=== PATIENT | female | born 1990 | race Caucasian/White ===

== ENCOUNTER 2023-01-16 13:03 | Emergency (ER) | payer OTHER ==
[~2023-01-16] VITALS: Ht 180.3 cm; Wt 113.4 kg
[2023-01-16 15:42] LABS: Influenza A, PCR NEGATIVE (NEGATIVE); Influenza B, PCR NEGATIVE (NEGATIVE); Resp Syncytial Virus, PCR NEGATIVE (NEGATIVE); SARS-Cov-2 (COVID-19) PCR, MMC NEGATIVE (NEGATIVE)
[2023-01-16] MEDS ORDERED: IBUP800 PO (15:42)
[2023-01-16] MEDS ORDERED: BENMENLOZ PO (15:42)
[2023-01-16] MEDS ORDERED: ONDA4ODT MM (15:42)
== END 2023-01-16 16:14 | disposition home or self-care (01) ==
LOC: ER 13:03
PROVIDERS: Student in an Organized Health Care Education/Training Program
DX: J02.9 Acute pharyngitis, unspecified (principal); H92.02 Otalgia, left ear; R51.9 Headache, unspecified; R11.0 Nausea; F17.200 Nicotine dependence, unspecified, uncomplicated; Z88.8 Allergy status to other drugs, medicaments and biological substances; Z20.822 Contact with and (suspected) exposure to COVID-19
CPT/HCPCS: 0241U; 87077; 87081; 87185; 87430; 96372; 99283-25; A9270; J1885

== ENCOUNTER 2023-07-22 14:02 | Emergency (ER) | payer OTHER ==
[~2023-07-22] VITALS: Ht 177.8 cm; Wt 90.7 kg
[~2023-07-22 14:02] MED LIST: BENMENLOZ PO; IBUP800 PO; ONDA4ODT MM
[2023-07-22 14:20] VITALS: BP 161/127
[2023-07-22 15:04] LABS: Source, Urine Clean Catch
[2023-07-22 15:11] LABS: Appearance, Urine Clear (Clear); Bilirubin, Urine Neg (Neg); Blood, Urine Neg (Neg); Color, Urine Yellow (P-Yellow); Glucose Qualitative, Urine Neg (Neg); Ketones, Urine Neg (Neg); Leukocyte Esterase, Urine Neg (Neg); Nitrite, Urine Neg (Neg); Protein, Urine Neg (Neg); Urobilinogen, Urine NORM (Normal)
[2023-07-22] MEDS ORDERED: Imitrex25 MG PO (15:33)
== END 2023-07-22 15:49 | disposition home or self-care (01) ==
LOC: ER 14:02
PROVIDERS: Physician Assistant
DX: G43.909 Migraine, unspecified, not intractable, without status migrainosus (principal); S09.90XA Unspecified injury of head, initial encounter; R10.9 Unspecified abdominal pain; Z88.6 Allergy status to analgesic agent; Z88.8 Allergy status to other drugs, medicaments and biological substances; X58.XXXA Exposure to other specified factors, initial encounter
CPT/HCPCS: 70486; 76770; 81003; 99284-25; A9270

== ENCOUNTER 2023-11-01 10:21 | Emergency (ER) | payer OTHER ==
[~2023-11-01] VITALS: Ht 177.8 cm; Wt 109.8 kg
[~2023-11-01 10:21] MED LIST changes: +Imitrex25 MG PO
[2023-11-01 10:51] VITALS: BP 138/78
[2023-11-01 11:20] LABS: Source, Urine Clean Catch
[2023-11-01 11:42] LABS: BASOPHILS ABSOLUTE AUTO 0.04 K/mm3 (0.00-0.23); BASOPHILS PERCENT AUTO 1 % (0-2); EOSINOPHILS ABSOLUTE AUTO 0.07 K/mm3 (0.00-0.68); EOSINOPHILS PERCENT AUTO 1 % (0-6); Hematocrit 37.7 % (33.0-51.0); Hemoglobin 12.4 g/dL (11.5-16.0); IMMATURE GRAN ABSOLUTE AUTO 0.02 K/mm3 (0.00-0.10); IMMATURE GRAN PERCENT AUTO 0 % (0-1); LYMPHOCYTES ABSOLUTE AUTO 1.88 K/mm3 (0.84-5.20); LYMPHOCYTES PERCENT AUTO 21 % (21-46); MONOCYTES ABSOLUTE AUTO 0.79 K/mm3 (0.16-1.47); MONOCYTES PERCENT AUTO 9 % (4-13); Mean Corpuscular HGB 29.8 pg (26.0-34.0); Mean Corpuscular HGB Conc 32.9 g/dL (31.5-36.5); Mean Corpuscular Volume 91 fL (80-100); Mean Platelet Volume 11.3 fL (9.1-12.4); NEUTROPHILS PERCENT AUTO 68 % (41-73); Platelet Count 209 K/mm3 (150-400); RDW Coefficient Variation 12.2 % (11.7-14.2); RDW Standard Deviation 40.6 fL (35.1-46.3); Red Blood Cell Count 4.16 M/mm3 (3.80-5.20)
[2023-11-01 11:48] LABS: Appearance, Urine Hazy (Clear); Bilirubin, Urine Neg (Neg); Blood, Urine 4+ (Neg); Color, Urine Yellow (P-Yellow); Glucose Qualitative, Urine Neg (Neg); Ketones, Urine Neg (Neg); Leukocyte Esterase, Urine 1+ (Neg); Nitrite, Urine Neg (Neg); Protein, Urine 1+ (Neg); Urobilinogen, Urine NORM (Normal)
[2023-11-01 12:03] LABS: Albumin/Globulin Ratio 1.2 (0.8-1.8); Bilirubin, Total 0.6 mg/dL (0.1-1.0); Bun/Creatinine Ratio 19.3 (12.0-20.0); Calcium, Blood 8.9 mg/dL (8.5-10.1); Creatinine, Blood 0.78 mg/dL (0.40-1.00); Globulin, Blood 3.3 g/dL (2.2-4.0); Potassium, Blood 3.7 mmol/L (3.5-5.5); Total Protein, Blood 7.3 g/dL (6.4-8.2)
[2023-11-01 12:10] LABS: Bacteria Few /hpf; Red Blood Cells, Urine 25-50 /hpf (0-2); Squamous Epithelial Cells Few /hpf (Few)
[2023-11-01] MEDS ORDERED: TraMADol HCl 50 MG Tab PO ONE (12:25)
[2023-11-01] MEDS ORDERED: Ondansetron HCl 2 MG / ML 2ML Vial IV ONE (12:25)
[2023-11-01] MEDS ORDERED: TRAM50 PO (12:26)
[2023-11-01] MEDS ORDERED: CEPH500 PO (12:26)
== END 2023-11-01 12:41 | disposition home or self-care (01) ==
LOC: ER 10:21
PROVIDERS: Student in an Organized Health Care Education/Training Program
DX: N39.0 Urinary tract infection, site not specified (principal); N20.0 Calculus of kidney; Z87.442 Personal history of urinary calculi; Z96.0 Presence of urogenital implants
CPT/HCPCS: 74177; 80053; 81001; 81025; 83690; 85025; 87086; 96374-59; 99284-25; A9270; J2405; Q9967

== ENCOUNTER 2023-11-07 13:47 | Emergency (ER) | payer OTHER ==
[~2023-11-07] VITALS: Ht 177.8 cm; Wt 108.9 kg
[~2023-11-07 13:47] MED LIST changes: +CEPH500 PO; +TRAM50 PO
[2023-11-07 15:06] LABS: BASOPHILS ABSOLUTE AUTO 0.03 K/mm3 (0.00-0.23); BASOPHILS PERCENT AUTO 0 % (0-2); EOSINOPHILS ABSOLUTE AUTO 0.04 K/mm3 (0.00-0.68); EOSINOPHILS PERCENT AUTO 0 % (0-6); Hematocrit 39.1 % (33.0-51.0); Hemoglobin 12.6 g/dL (11.5-16.0); IMMATURE GRAN ABSOLUTE AUTO 0.04 K/mm3 (0.00-0.10); IMMATURE GRAN PERCENT AUTO 0 % (0-1); LYMPHOCYTES ABSOLUTE AUTO 1.22 K/mm3 (0.84-5.20); LYMPHOCYTES PERCENT AUTO 11 % (21-46); MONOCYTES ABSOLUTE AUTO 0.69 K/mm3 (0.16-1.47); MONOCYTES PERCENT AUTO 6 % (4-13); Mean Corpuscular HGB Conc 32.2 g/dL (31.5-36.5); Mean Corpuscular Volume 90 fL (80-100); Mean Platelet Volume 10.7 fL (9.1-12.4); NEUTROPHILS ABSOLUTE AUTO 9.18 K/mm3 (1.96-9.15); NEUTROPHILS PERCENT AUTO 82 % (41-73); Platelet Count 231 K/mm3 (150-400); RDW Coefficient Variation 12.3 % (11.7-14.2); RDW Standard Deviation 41.1 fL (35.1-46.3); Red Blood Cell Count 4.35 M/mm3 (3.80-5.20)
[2023-11-07 15:24] LABS: Albumin, Blood 4.1 g/dL (3.4-5.0); Albumin/Globulin Ratio 1.1 (0.8-1.8); Bilirubin, Total 0.6 mg/dL (0.1-1.0); Bun/Creatinine Ratio 13.2 (12.0-20.0); Calcium, Blood 9.1 mg/dL (8.5-10.1); Creatinine, Blood 0.76 mg/dL (0.40-1.00); Globulin, Blood 3.6 g/dL (2.2-4.0); Potassium, Blood 3.7 mmol/L (3.5-5.5); Total Protein, Blood 7.7 g/dL (6.4-8.2)
[2023-11-07] MEDS ORDERED: Ondansetron HCl 2 MG / ML 2ML Vial IV ONE (15:50)
[2023-11-07] MEDS ORDERED: FentaNYL Citrate 50 MCG/ML 2 ML Injection IV ONE (16:10)
[2023-11-07] MEDS ORDERED: Lactated Ringer's 1,000 ML IV ONE (16:15)
[2023-11-07 16:16] LABS: Source, Urine Clean Catch
[2023-11-07 16:22] LABS: Appearance, Urine Hazy (Clear); Bilirubin, Urine Neg (Neg); Blood, Urine 5+ (Neg); Color, Urine Amber (P-Yellow); Glucose Qualitative, Urine Neg (Neg); Ketones, Urine Neg (Neg); Leukocyte Esterase, Urine Neg (Neg); Nitrite, Urine Neg (Neg); Protein, Urine 2+ (Neg); Specific Gravity, Urine 1.015 (1.003-1.022); Urobilinogen, Urine NORM (Normal)
[2023-11-07 16:31] LABS: Bacteria Few /hpf; Red Blood Cells, Urine 25-50 /hpf (0-2); Squamous Epithelial Cells Few /hpf (Few); White Blood Cells, Urine 0-2 /hpf (0-5)
[2023-11-07 16:52] LABS: Influenza A, PCR NEGATIVE (NEGATIVE); Influenza B, PCR NEGATIVE (NEGATIVE); Resp Syncytial Virus, PCR NEGATIVE (NEGATIVE); SARS-Cov-2 (COVID-19) PCR, MMC NEGATIVE (NEGATIVE)
[2023-11-07 17:15] VITALS: BP 103/62
[2023-11-07] MEDS ORDERED: OXAYDO5 M1 PO (17:54)
== END 2023-11-07 18:03 | disposition home or self-care (01) ==
LOC: ER 13:47
PROVIDERS: Physician Assistant; Student in an Organized Health Care Education/Training Program
DX: N13.2 Hydronephrosis with renal and ureteral calculous obstruction (principal); Z79.899 Other long term (current) drug therapy; Z88.8 Allergy status to other drugs, medicaments and biological substances; Z88.6 Allergy status to analgesic agent; Z20.822 Contact with and (suspected) exposure to COVID-19
CPT/HCPCS: 0241U; 71046; 74177; 80053; 81001; 81025; 83690; 85025; 93005; 93010; 96361; 96374-59; 96375; 99284-25; J2405; J3010; J7120; Q9967

== ENCOUNTER → 2024-01-30 | Outpatient (CLI) | payer OTHER ==
[~2024-01-30] MED LIST changes: +OXAYDO5 M1 PO
== END | disposition home or self-care (01) ==
LOC: LAB SHORT 09:10 → LAB 09:10
DX: R30.0 Dysuria (principal); R19.5 Other fecal abnormalities; R11.0 Nausea
CPT/HCPCS: 87086

== ENCOUNTER 2024-03-20 04:43 | Emergency (ER) | payer OTHER ==
[~2024-03-20] VITALS: Ht 177.8 cm; Wt 106.6 kg
[~2024-03-20 04:43] MED LIST changes: +ABILIFY MYCITE2 M2 PO; +ABILIFY5 MG PO; +ALLO100 PO; +LAMOTRIGINE100 M1 PO; +PRAZ1 PO; +Robaxin750 MG PO
[2024-03-20 05:53] LABS: BASOPHILS ABSOLUTE AUTO 0.04 K/mm3 (0.00-0.23); BASOPHILS PERCENT AUTO 1 % (0-2); EOSINOPHILS ABSOLUTE AUTO 0.13 K/mm3 (0.00-0.68); EOSINOPHILS PERCENT AUTO 2 % (0-6); Hematocrit 37.1 % (33.0-51.0); Hemoglobin 12.1 g/dL (11.5-16.0); IMMATURE GRAN ABSOLUTE AUTO 0.03 K/mm3 (0.00-0.10); IMMATURE GRAN PERCENT AUTO 0 % (0-1); LYMPHOCYTES ABSOLUTE AUTO 1.83 K/mm3 (0.84-5.20); LYMPHOCYTES PERCENT AUTO 26 % (21-46); MONOCYTES ABSOLUTE AUTO 0.78 K/mm3 (0.16-1.47); MONOCYTES PERCENT AUTO 11 % (4-13); Mean Corpuscular HGB 29.8 pg (26.0-34.0); Mean Corpuscular HGB Conc 32.6 g/dL (31.5-36.5); Mean Corpuscular Volume 91 fL (80-100); Mean Platelet Volume 10.8 fL (9.1-12.4); NEUTROPHILS ABSOLUTE AUTO 4.14 K/mm3 (1.96-9.15); NEUTROPHILS PERCENT AUTO 60 % (41-73); Platelet Count 177 K/mm3 (150-400); RDW Coefficient Variation 13.1 % (11.7-14.2); RDW Standard Deviation 43.7 fL (35.1-46.3); Red Blood Cell Count 4.06 M/mm3 (3.80-5.20); White Blood Cell Count 6.95 K/mm3 (4.00-11.30)
[2024-03-20] MEDS ORDERED: Methocarbamol 500 MG Tab PO ONE (06:10)
[2024-03-20] MEDS ORDERED: Ketorolac Tromethamine 30mg Vial IV ONE (06:10)
[2024-03-20] MEDS ORDERED: Acetaminophen 500 MG Tab PO ONE (06:10)
[2024-03-20] MEDS ORDERED: Methyl Salicylate/Menth/Camph 57 GM TUBE TOP ONE (06:10)
[2024-03-20 06:18] LABS: Albumin, Blood 3.5 g/dL (3.4-5.0); Albumin/Globulin Ratio 1.2 (0.8-1.8); Bilirubin, Total 0.4 mg/dL (0.1-1.0); Bun/Creatinine Ratio 14.9 (12.0-20.0); Calcium, Blood 8.9 mg/dL (8.5-10.1); Creatinine, Blood 0.61 mg/dL (0.40-1.00); Potassium, Blood 3.9 mmol/L (3.5-5.5); Total Protein, Blood 6.5 g/dL (6.4-8.2)
[2024-03-20 08:11] LABS: Source, Urine Clean Catch
[2024-03-20 08:14] LABS: Appearance, Urine Clear (Clear); Bilirubin, Urine Neg (Neg); Blood, Urine Neg (Neg); Color, Urine Yellow (P-Yellow); Glucose Qualitative, Urine Neg (Neg); Ketones, Urine Neg (Neg); Leukocyte Esterase, Urine 1+ (Neg); Nitrite, Urine Neg (Neg); Protein, Urine 1+ (Neg); Urobilinogen, Urine NORM (Normal)
[2024-03-20 08:21] LABS: Bacteria Rare /hpf; Red Blood Cells, Urine Not Seen /hpf (0-2); Squamous Epithelial Cells Rare /hpf (Few)
[2024-03-20 10:01] VITALS: BP 116/69
== END 2024-03-20 10:02 | disposition home or self-care (01) ==
LOC: ER 04:43
PROVIDERS: Emergency Medicine
DX: S39.012A Strain of muscle, fascia and tendon of lower back, initial encounter (principal); N13.2 Hydronephrosis with renal and ureteral calculous obstruction; X58.XXXA Exposure to other specified factors, initial encounter; Z88.8 Allergy status to other drugs, medicaments and biological substances; Z88.6 Allergy status to analgesic agent; Z79.899 Other long term (current) drug therapy; F17.200 Nicotine dependence, unspecified, uncomplicated
CPT/HCPCS: 74177; 76770; 80053; 81001; 83690; 83735; 84145; 84703; 85025; 87086; 96374-59; 99284-25; A9270; J1885; Q9967

== ENCOUNTER → 2024-03-22 | Outpatient (CLI) | payer OTHER ==
[2024-04-05 12:50] LABS: HPV HIGH RISK BY TMA Not Detected; HPV SOURCE Cervical
== END ==
LOC: LAB 11:02 → LAB SHORT 11:02
PROVIDERS: Physician Assistant
DX: Z01.419 Encounter for gynecological examination (general) (routine) without abnormal findings (principal)
CPT/HCPCS: 87624; G0123

== ENCOUNTER → 2024-04-14 | Outpatient (CLI) | payer OTHER ==
[2024-04-20 10:37] LABS: CALCIUM, URINE - PER 24H 92 mg/d (100-250); CALCIUM, URINE - PER VOLUME 8.4 mg/dL; CHLORIDE, URINE - PER 24H 70 mmol/d (140-250); CHLORIDE, URINE - PER VOLUME 64 mmol/L; CITRIC ACID, URINE - PER 24H 320 mg/d (320-1240); CITRIC ACID,URINE - PER VOLUME 291 mg/L; CREATININE, URINE - PER 24H 1738 mg/d (700-1600); CREATININE, URINE - PER VOLUME 158 mg/dL; HOURS COLLECTED 24 hr; MAGNESIUM, URINE - PER VOLUME 7.4 mg/dL; MAGNESIUM, URINE PER 24H 81 mg/d (12-199); OXALATE, URINE - PER 24H 31 mg/d (13-40); OXALATE, URINE - PER VOLUME 28 mg/L; PH, URINE 6.05 (5.00-7.50); PHOSPHORUS, URINE - PER 24H 946 mg/d (400-1300); PHOSPHORUS, URINE - PER VOLUME 86 mg/dL; POTASSIUM, URINE - PER 24H 43 mmol/d (25-125); POTASSIUM, URINE - PER VOLUME 39 mmol/L; SODIUM, URINE - PER 24H 69 mmol/d (51-286); SODIUM, URINE - PER VOLUME 63 mmol/L; SULFATE, URINE - PER 24H 15 mmol/d (6-30); SULFATE, URINE - PER VOLUME 14 mmol/L; TOTAL VOLUME 1100 mL; URIC ACID, URINE - PER 24H 341 mg/d (250-750); URINE SUPERSATURATION INTERP Abnormal; URINE SUPERSATURATION, CAHPO4 1.88; URINE SUPERSATURATION, CAOX 5.65; URINE SUPERSATURATION, UA CALC 0.42
== END ==
LOC: LAB SHORT 13:30 → LAB 13:30 → LAB FUT 04-12 13:00
PROVIDERS: Urology
DX: N13.5 Crossing vessel and stricture of ureter without hydronephrosis (principal); N20.0 Calculus of kidney
CPT/HCPCS: 81003; 82131; 82140; 82340; 82436; 82507; 82570; 83735; 83935; 83945; 84105; 84133; 84300; 84392; 84560

== ENCOUNTER 2024-06-20 12:10 | Emergency (ER) | payer OTHER ==
[~2024-06-20] VITALS: Ht 177.8 cm; Wt 104.3 kg
[2024-06-20 12:49] LABS: BASOPHILS ABSOLUTE AUTO 0.05 K/mm3 (0.00-0.23); BASOPHILS PERCENT AUTO 1 % (0-2); EOSINOPHILS ABSOLUTE AUTO 0.07 K/mm3 (0.00-0.68); EOSINOPHILS PERCENT AUTO 1 % (0-6); Hematocrit 42.9 % (33.0-51.0); Hemoglobin 14.1 g/dL (11.5-16.0); IMMATURE GRAN ABSOLUTE AUTO 0.04 K/mm3 (0.00-0.10); IMMATURE GRAN PERCENT AUTO 0 % (0-1); LYMPHOCYTES ABSOLUTE AUTO 1.94 K/mm3 (0.84-5.20); LYMPHOCYTES PERCENT AUTO 19 % (21-46); MONOCYTES ABSOLUTE AUTO 0.65 K/mm3 (0.16-1.47); MONOCYTES PERCENT AUTO 6 % (4-13); Mean Corpuscular HGB 29.9 pg (26.0-34.0); Mean Corpuscular HGB Conc 32.9 g/dL (31.5-36.5); Mean Corpuscular Volume 91 fL (80-100); Mean Platelet Volume 10.9 fL (9.1-12.4); NEUTROPHILS ABSOLUTE AUTO 7.61 K/mm3 (1.96-9.15); NEUTROPHILS PERCENT AUTO 73 % (41-73); Platelet Count 196 K/mm3 (150-400); RDW Coefficient Variation 11.6 % (11.7-14.2); RDW Standard Deviation 38.9 fL (35.1-46.3); Red Blood Cell Count 4.71 M/mm3 (3.80-5.20); White Blood Cell Count 10.36 K/mm3 (4.00-11.30)
[2024-06-20 13:11] LABS: Ethanol (Alcohol), Blood, Med <3 mg/dL; Salicylate 2.3 mg/dL (2.8-20.0)
[2024-06-20 13:18] LABS: Acetaminophen, Random <2.0 ug/mL (10.0-30.0); Alanine Aminotransfer (ALT/SGP 16 U/L (12-78); Albumin, Blood 4.4 g/dL (3.4-5.0); Albumin/Globulin Ratio 1.2 (0.8-1.8); Alk Phos 55 U/L (50-136); Anion Gap 10 mmol/L (3-11); Aspartate Aminotrans (AST/SGOT 15 U/L (12-37); Bilirubin, Total 0.4 mg/dL (0.1-1.0); Blood Urea Nitrogen 13 mg/dL (8-24); Bun/Creatinine Ratio 12.9 (12.0-20.0); CO2, Blood 24 mmol/L (21-32); Calcium, Blood 9.2 mg/dL (8.5-10.1); Chloride, Blood 111 mmol/L (98-108); Creatinine, Blood 1.01 mg/dL (0.40-1.00); Globulin, Blood 3.7 g/dL (2.2-4.0); Glomerular Filtration Rate 75 (60-); Glucose, Blood 95 mg/dL (70-99); Potassium, Blood 4.3 mmol/L (3.5-5.5); Sodium, Blood 141 mmol/L (136-145); Total Protein, Blood 8.1 g/dL (6.4-8.2)
[2024-06-20 13:21] LABS: Source, Urine Clean Catch
[2024-06-20 13:24] LABS: Appearance, Urine Hazy (Clear); Bilirubin, Urine Neg (Neg); Blood, Urine Neg (Neg); Color, Urine Yellow (P-Yellow); Glucose Qualitative, Urine Neg (Neg); Ketones, Urine Neg (Neg); Leukocyte Esterase, Urine 1+ (Neg); Nitrite, Urine Neg (Neg); Protein, Urine 1+ (Neg); Specific Gravity, Urine 1.015 (1.003-1.022); Urobilinogen, Urine 2+ (Normal); pH, Urine 6.5 (5.0-8.0)
[2024-06-20 13:44] LABS: Amorphous Light (0-Heavy); Red Blood Cells, Urine 0-2 /hpf (0-2); Squamous Epithelial Cells Mod /hpf (Few)
[2024-06-20 13:45] LABS: Bacteria Few /hpf
[2024-06-20 13:58] LABS: U Amphetamine Screen Not Detected; U Barbituate Screen Not Detected; U Benzodiazapine Screen Not Detected; U Buprenorphine Screen Not Detected; U Cannabinoids Screen DETECTED; U Cocaine Screen DETECTED; U Methadone Screen Not Detected; U Methamphetamine Screen Not Detected; U Opiates Screen DETECTED; U Oxycodone Screen Not Detected; U Phencyclidine Screen Not Detected
[2024-06-20] MEDS ORDERED: Acetaminophen 325 MG TABLET PO PRN (19:05)
[2024-06-20 19:09] VITALS: BP 119/73
== END 2024-06-20 20:57 ==
LOC: ER 12:10
PROVIDERS: Emergency Medicine
DX: R45.851 Suicidal ideations (principal); F17.290 Nicotine dependence, other tobacco product, uncomplicated; Z88.8 Allergy status to other drugs, medicaments and biological substances; Z88.6 Allergy status to analgesic agent
CPT/HCPCS: 80053; 80320; 81001; 81025; 85025; 87086; 93005; 93010; 99285-25; A9270; G0480

== ENCOUNTER 2024-06-20 14:18 | Inpatient (IN) | payer OTHER ==
[~2024-06-20] VITALS: Ht 177.8 cm; Wt 104.3 kg
[2024-06-20] MEDS ORDERED: FLU VACC TS2024-25(6MOS UP)/PF 45 MCG/0.5 ML SYRINGE IM SCH (19:50)
[2024-06-20] MEDS ORDERED: QUEtiapine Fumarate 25 MG Tab PO PRN (19:55)
[2024-06-20] MEDS ORDERED: Aluminum Hydroxide 320MG/5ML 473 ML PO PRN (19:55)
[2024-06-20] MEDS ORDERED: TraZODone HCl 50 MG Tab PO PRN (19:55)
[2024-06-20] MEDS ORDERED: Melatonin 3 MG Tab PO PRN (19:55)
[2024-06-20] MEDS ORDERED: OLANZapine 10 MG Vial IM PRN (19:55)
[2024-06-20] MEDS ORDERED: OLANZapine ODT 10 MG Tab MM PRN (19:55)
[2024-06-20] MEDS ORDERED: Acetaminophen 325 MG TABLET PO PRN (19:55)
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
[2024-06-21 08:51] VITALS: BP 102/68
[2024-06-21] MEDS ORDERED: Multivitamins 1 Tab PO SCH (09:00)
[2024-06-21] MEDS ORDERED: SUMAtriptan Succinate 25 MG Tab PO ONE (12:05)
[2024-06-21] MEDS ORDERED: SUMAtriptan Succinate 25 MG Tab PO PRN (12:10)
[2024-06-21] MEDS ORDERED: ARIPiprazole 10 MG Tab PO SCH (12:14)
[2024-06-21] MEDS ORDERED: LamoTRIgine 25 MG Tab PO SCH (12:14)
[2024-06-21] MEDS ORDERED: Sertraline HCl 50 MG Tab PO SCH (12:15)
--- NOTE | 2024-06-21 18:44 | NUR ---
SHIFT SUMMARY PT AA&OX4. PLEASANT AND COOPERATIVE WITH CARE. SPEECH AND EYE CONTACT APPROPRIATE. COMPLIANT WITH MEDICATION. PT ATTEMPTED GROUP BUT HAD A MIGRAINE HEADACHE. PT TAKES 100MG SUMATRITAN AT HOME. NOTIFIED AN ORDER OBTAINED. AFTER MEDICATION PT SLEPT MOST OF THE DAY. PT REPORTS MIGRAINE IMPROVED ON WAKING. SHE HAD WHAT APPEARED TO BE A PLEASANT VISIT WITH MOTHER. SHE CURRENTLY DENIES SI, AVH. SHE HAS NO CURRENT NEEDS OR CONCERNS. WILL CONTINUE POC
[2024-06-21] MEDS ORDERED: Prazosin HCl 1 MG Cap PO SCH (21:00)
--- NOTE | 2024-06-21 21:15 | NUR ---
NATHANIEL "MILE" IN BED WITH COVER OVER EYES DUE TO C/O MIGRAINE. PRN IMITREX GIVEN ORDERED. PT IS ALERT AND ORIENTED, CALM, COOPERATIVE, COMPLIANT WITH ALL CARE. DENIED SI/HI/AVTH. PT STATED "I HAD A GOOD DAY, BUT I DID CRY A LOT." DENIED ALL OTHER CONCERNS. PT CURRENTLY STILL IN BED RESTING, CHEST RISING IN NAD. SAFETY MEASURES MAINTAINED VIA Q15 MIN CHECKS.
[2024-06-21 22:08] VITALS: BP 121/73
--- NOTE | 2024-06-22 04:34 | NUR ---
SEE PREVIOUS NOTE. PT APPEARED TO SLEEP ALL SHIFT WITHOUT DIFFICULTY. PT IS STILL CURRENTLY IN BED, CHEST RISING IN NAD. SAFETY MEASURES MAINTAINED.
[2024-06-22 08:25] VITALS: BP 133/92
[2024-06-22] MEDS ORDERED: Omeprazole 20 MG CapCR PO ONE (11:05)
--- NOTE | 2024-06-22 17:20 | NUR ---
SHIFT SUMMARY PT AA&OX4. PLEASANT AND COOPERATIVE WITH CARE. SPEECH AND EYE CONTACT APPROPRIATE. REPORTS MOOD "DOING BETTER" AFFECT IS CONGRUENT. PT HAS BEEN UP TO SHOWER, GROUPS, AND MEALS. SHE REPORTS TO THIS RN THAT SHE IS PLEASED TO BE PARTICIPATING. SHE DENIES CURRENT SI, AVH. SHE IS COPMPLIANT WITH MEDICATION. SHE DID REPORT THE BEGINNING OF A MIGRAINE THIS EVENING, SUMATRITIN GIVEN WITH PT LAYING DOWN AFTER. SHE DENIES ANY OTHER CONCERNS AT THIS TIME. WILL CONTINUE POC.
[2024-06-22 22:07] VITALS: BP 103/63
--- NOTE | 2024-06-23 02:25 | NUR ---
ASSUMED CARE FROM PRIOR SHIFT. PATIENT IS A/OX4. ABLE TO VOICE NEEDS AND HAVE MEANINGFUL CONVERSATION. SHE IS SOCIALIZING WITH OTHER PATIENTS AND STAFF APPROPRIATELY. SHE DENIES ANY SI,VH OR AH. SHE IS COMPLIANT WITH MEDICATIONS, ASSESSMENT AND CARE. SHE GOES TO BED WITHOUT ENCOURAGMENT. NO NOTED BEHAVIORS OR ISSUES. SHE IS CURRENTLY SLEEPING THROUGH THE NIGHT.
--- NOTE | 2024-06-23 04:08 | NUR ---
PATIENT CONTINUES TO SLEEP WITHOUT ANY BEHAVIORS OR ISSUES. WE WILL CONTINUE TO MONITOR.
--- NOTE | 2024-06-23 06:24 | NUR ---
PATIENT SLEPT THROUGH THE NIGHT. NO NOTED ISSUES OR BEHAVIORS.
[2024-06-23 08:34] VITALS: BP 123/83
[2024-06-23] MEDS ORDERED: Omeprazole 20 MG CapCR PO SCH (09:00)
[2024-06-23] MEDS ORDERED: ARIPiprazole 300 MG SUSER.SYR IM ONE ×2 (09:50→12:05)
[2024-06-23] MEDS ORDERED: FLU VACC TS2024-25(6MOS UP)/PF 45 MCG/0.5 ML SYRINGE IM ONE (12:15)
--- NOTE | 2024-06-23 15:13 | NUR ---
Pt Discharge Appointment Information Pt note has been sent back to [facility] on [facility] Operator [facility]. He will return a call for discharge appointment.
[2024-06-23 22:24] VITALS: BP 131/75
--- NOTE | 2024-06-24 01:14 | NUR ---
ASSUMED CARE FROM PRIOR SHIFT. PATIENT IS A/OX4, ABLE TO VOICE NEEDS AND HAVE MEANINGFUL CONVERSATION. SHE IS VISITING WITH STAFF AND OTHER PATIENTS APPROPRIATLY. SHE HAS A PM SNACK WITH OTHER PATIENTS. SHE DOES C/O OF MIGRAINE HEAD ACHE PAIN AND WAS GIVEN HER PRN MEDICATIONS FOR HEAD ACHE AND SLEEP. SHE DOES GO TO BED WITHOUT ENCOURAGEMENT. SHE DENIES ANY SI, VH OR AH. NO NOTED BEHAVIORS OR ISSUES. WE WILL CONTINUE TO MONITOR.
--- NOTE | 2024-06-24 04:22 | NUR ---
PATIENT CONTINUES TO SLEEP THROUGH THE NIGHT. NO NOTED BEHAVIORS OR ISSUES.
[2024-06-24] MEDS ORDERED: Omeprazole 20 MG CapCR PO SCH (06:00)
[2024-06-24] MEDS ORDERED: ARIPiprazole 10 MG Tab PO SCH (09:00)
[2024-06-24 09:15] VITALS: BP 135/75
[2024-06-24] MEDS ORDERED: LAMO25 PO (11:18)
[2024-06-24] MEDS ORDERED: OMEP20ER PO (11:19)
[2024-06-24] MEDS ORDERED: MELA3 PO (11:19)
[2024-06-24] MEDS ORDERED: SERT25 PO (11:20)
[2024-06-24] MEDS ORDERED: PRAZ1 PO (11:20)
[2024-06-24] MEDS ORDERED: IMITREX25 MG PO (11:24)
[2024-06-24] MEDS ORDERED: ABILIFY IM (11:30)
--- NOTE | 2024-06-24 13:10 | NUR ---
DC SUMMARY PT AxOx4. PLEASANT AND COOPERATIVE WITH CARE. PT IS DISCHARGING TODAY HOME WITH HER DAD. PT DENIES SI/HI AND AVH. PT HAS BEEN FOLLOWING TX PLAN INCLUDING TAKING MEDS PRESCRIBED, ATTENDING GROUPS/THERAPY AND SOCIALIZING WITH PEERS/STAFF. DISCHARGE INSTRUCTIONS DISCUSSED INCLUDING FOLLOW UP APPOINTMENT INFO, DC MED LIST AND PATIENT EDUCATION REGARDING DIAGNOSES AND NEW MEDICATIONS. PT VERBALIZES UNDERSTANDING. DENIES FURTHER QUESTIONS AT THIS TIME. PT REPORTS FEELING EAGER AND EXCITED TO GET HOME. BELONGINGS RETURNED BY [facility] AND PT SAFELY ESCORTED OUT TO HER RIDE OUTSIDE OF UNIT.
--- NOTE | 2024-06-24 13:30 | NUR ---
Patient received all belongings in tote and safe
== END 2024-06-24 13:05 | disposition home or self-care (01) | DRG 885 ==
LOC: BHU 14:18
PROVIDERS: ADMIT Student in an Organized Health Care Education/Training Program
DX: F33.2 Major depressive disorder, recurrent severe without psychotic features (principal); R45.851 Suicidal ideations; F43.23 Adjustment disorder with mixed anxiety and depressed mood; F17.290 Nicotine dependence, other tobacco product, uncomplicated; M54.50 Low back pain, unspecified; Z87.442 Personal history of urinary calculi; Z98.890 Other specified postprocedural states; Z79.899 Other long term (current) drug therapy
CPT/HCPCS: A9270; J0401

== ENCOUNTER 2024-09-01 18:58 | Emergency (ER) | payer OTHER ==
[~2024-09-01] VITALS: Ht 177.8 cm; Wt 113.4 kg
[~2024-09-01 18:58] MED LIST changes: +ABILIFY IM; +IMITREX25 MG PO; +LAMO25 PO; +MELA3 PO; +OMEP20ER PO; +SERT25 PO
[2024-09-01 19:17] VITALS: BP 120/67
[2024-09-01] MEDS ORDERED: Prochlorperazine Edisylate 10 mg Vial IV ONE (20:15)
[2024-09-01] MEDS ORDERED: Ketorolac Tromethamine 30mg Vial IV ONE (20:15)
[2024-09-01] MEDS ORDERED: DiphenhydrAMINE HCl 50 MG/ML 1ML Vial IV ONE (20:15)
[2024-09-02] MEDS ORDERED: Robaxin750 MG PO (11:39)
== END 2024-09-01 21:03 | disposition home or self-care (01) ==
LOC: ER 18:58
DX: G43.909 Migraine, unspecified, not intractable, without status migrainosus (principal); F17.290 Nicotine dependence, other tobacco product, uncomplicated; Z79.899 Other long term (current) drug therapy; Z88.6 Allergy status to analgesic agent; Z88.8 Allergy status to other drugs, medicaments and biological substances
CPT/HCPCS: 96374; 96375; 99283-25; J0780; J1200; J1885

== ENCOUNTER 2024-09-02 07:36 | Emergency (ER) | payer OTHER ==
[~2024-09-02] VITALS: Ht 177.8 cm; Wt 113.4 kg
[2024-09-02] MEDS ORDERED: Dexamethasone Sod Phos 10 MG/ML 1ML VIAL IV ONE (08:35)
[2024-09-02] MEDS ORDERED: DiphenhydrAMINE HCl 50 MG/ML 1ML Vial IV ONE (08:35)
[2024-09-02] MEDS ORDERED: Metoclopramide HCl 5MG / ML 2ML Vial IV ONE (08:35)
[2024-09-02] MEDS ORDERED: NS 1,000 ML IV SCH (08:35)
[2024-09-02] MEDS ORDERED: Ketorolac Tromethamine 15mg Vial IV ONE (08:35)
[2024-09-02 10:14] LABS: BASOPHILS ABSOLUTE AUTO 0.05 K/mm3 (0.00-0.23); BASOPHILS PERCENT AUTO 1 % (0-2); EOSINOPHILS ABSOLUTE AUTO 0.03 K/mm3 (0.00-0.68); EOSINOPHILS PERCENT AUTO 0 % (0-6); Hematocrit 35.3 % (33.0-51.0); Hemoglobin 11.6 g/dL (11.5-16.0); IMMATURE GRAN ABSOLUTE AUTO 0.03 K/mm3 (0.00-0.10); IMMATURE GRAN PERCENT AUTO 0 % (0-1); LYMPHOCYTES ABSOLUTE AUTO 1.64 K/mm3 (0.84-5.20); LYMPHOCYTES PERCENT AUTO 19 % (21-46); MONOCYTES ABSOLUTE AUTO 0.79 K/mm3 (0.16-1.47); MONOCYTES PERCENT AUTO 9 % (4-13); Mean Corpuscular HGB 30.5 pg (26.0-34.0); Mean Corpuscular HGB Conc 32.9 g/dL (31.5-36.5); Mean Corpuscular Volume 93 fL (80-100); Mean Platelet Volume 11.1 fL (9.1-12.4); NEUTROPHILS ABSOLUTE AUTO 6.05 K/mm3 (1.96-9.15); NEUTROPHILS PERCENT AUTO 71 % (41-73); Platelet Count 196 K/mm3 (150-400); RDW Coefficient Variation 11.9 % (11.7-14.2); White Blood Cell Count 8.59 K/mm3 (4.00-11.30)
[2024-09-02 10:27] LABS: Albumin, Blood 3.9 g/dL (3.4-5.0); Albumin/Globulin Ratio 1.3 (0.8-1.8); Bilirubin, Total 0.5 mg/dL (0.1-1.0); Bun/Creatinine Ratio 13.4 (12.0-20.0); Creatinine, Blood 0.82 mg/dL (0.40-1.00); Globulin, Blood 2.9 g/dL (2.2-4.0); Potassium, Blood 4.1 mmol/L (3.5-5.5); Total Protein, Blood 6.8 g/dL (6.4-8.2)
[2024-09-02] MEDS ORDERED: Robaxin750 MG PO (11:39)
[2024-09-02 11:50] VITALS: BP 123/66
== END 2024-09-02 11:55 | disposition home or self-care (01) ==
LOC: ER 07:36
PROVIDERS: Physician Assistant
DX: G43.909 Migraine, unspecified, not intractable, without status migrainosus (principal); R00.1 Bradycardia, unspecified; F17.290 Nicotine dependence, other tobacco product, uncomplicated; Z79.899 Other long term (current) drug therapy; Z88.6 Allergy status to analgesic agent; Z88.8 Allergy status to other drugs, medicaments and biological substances
CPT/HCPCS: 80053; 83735; 85025; 93005; 93010; 93242; 96361; 96374; 96375; 99283-25; J1100; J1200; J1885; J2765; J7030

== ENCOUNTER → 2024-09-07 | Outpatient (CLI) | payer OTHER | END | disposition home or self-care (01) | LOC: LAB 16:22 → LAB SHORT 16:22 | DX: N39.0 Urinary tract infection, site not specified (principal) | CPT/HCPCS: 87086 ==

== ENCOUNTER → 2025-01-10 | Outpatient (CLI) | payer OTHER | END | disposition home or self-care (01) | LOC: LAB 15:13 → LAB SHORT 15:13 | DX: R35.0 Frequency of micturition (principal) | CPT/HCPCS: 87086 ==